=== PATIENT | female | born 1955 | race Caucasian/White ===

== ENCOUNTER → 2024-06-22 | Outpatient (REF) | payer OTHER | LOC: M SFHCDERM 12:59 | PROVIDERS: ATTEND Physician Assistant | DX: C44.319 Basal cell carcinoma of skin of other parts of face (principal) ==

== ENCOUNTER → 2024-12-21 | Outpatient (REF) | payer OTHER | LOC: M SFHCDERM 13:10 | PROVIDERS: ATTEND Physician Assistant | DX: D49.2 Neoplasm of unspecified behavior of bone, soft tissue, and skin (principal) ==